=== PATIENT | female | born 1960 | race American Indian/Alaskan Native ===

== ENCOUNTER 2022-05-20 17:01 | Emergency (ER) | payer OTHER ==
[~2022-05-20] VITALS: Ht 152.4 cm; Wt 88.5 kg
[~2022-05-20 17:01] MED LIST: ASPI81CH PO; CYCL10 PO; GABA300 PO; Hydrocodone-Ap1 EA23 PO; IBUP800 PO; LISI20 PO; NICO21TP TD; OMEP40CA12 PO; SIMV10 PO; TRAM50 PO; [UNRECOGNIZED DRUG - OTHER] PO
== END 2022-05-20 20:29 | disposition home or self-care (01) ==
LOC: ER 17:01
DX: S06.0X9A Concussion with loss of consciousness of unspecified duration, initial encounter (principal); F17.210 Nicotine dependence, cigarettes, uncomplicated; Z79.82 Long term (current) use of aspirin; Z79.899 Other long term (current) drug therapy; W19.XXXA Unspecified fall, initial encounter
CPT/HCPCS: 99283